=== PATIENT | female | born 1935 | race African-American/Black ===

== ENCOUNTER 2016-10-17 23:13 | Inpatient (IN) | payer MEDICARE ==
[~2016-10-17] VITALS: Ht 163.8 cm; Wt 81.8 kg
[2016-10-18] MEDS ORDERED: SODIUM CHLORIDE 0.9% 1,000ML IVBOLUS ONE
[2016-10-18] MEDS ORDERED: CEFTRIAXONE PMX 1GM/50ML 50 ML IVPB ONE
[2016-10-18] MEDS ORDERED: SODIUM CHLORIDE FLUSH 10ML SYR IVF ONE
[2016-10-18] MEDS ORDERED: AZITHROMYCIN 500 MG in SODIUM CHLORIDE 0.9% 250 ML IVPB ONE
[2016-10-18] MEDS ORDERED: ONDANSETRON 2MG/ML, 2ML IVP ONE
[2016-10-18] MEDS ORDERED: CEFTRIAXONE PMX 1GM/50ML 50 ML ONE (00:01)
[2016-10-18] MEDS ORDERED: ONDANSETRON 2MG/ML, 2ML ONE (00:04)
[2016-10-18] MEDS ORDERED: MORPHINE SULFATE 4 MG/ML, 1ML ONE ×2 (00:04→01:10)
[2016-10-18] MEDS ORDERED: LISI-167 PO (00:09)
[2016-10-18] MEDS ORDERED: SIMV20TA3 PO (00:09)
[2016-10-18] MEDS: MORPHINE SULFATE 4 MG/ML, 1ML IVPush PRN ×2 (00:34→01:14)
[2016-10-18 00:41] LABS: ASPARTATE AMINO TRANSFERASE 16 U/L (15-37); BLOOD UREA NITROGEN 21 mg/dL (7-18)
[2016-10-18 00:49] LABS: IS PT STATUS REG ER OR PRE ER? YES
[2016-10-18] MEDS ORDERED: OMNIPAQUE 350 MG/ML, 100ML BOTTLE ONE (01:11)
[2016-10-18] MEDS ORDERED: HEPARIN 5,000 UNITS/ML, 1ML IV ONE (01:30)
[2016-10-18] MEDS ORDERED: HEPARIN 5,000 UNITS/ML, 1ML IV PRN (01:30)
[2016-10-18] MEDS ORDERED: HEPARIN 5,000 UNITS/ML, 1ML ONE (01:48)
[2016-10-18] MEDS ORDERED: HEPARIN 25,000 UNITS/500ML PMX 500 ML ONE (01:54)
[2016-10-18] MEDS ORDERED: TRAZODONE 50MG TABLET PO PRN (02:00)
[2016-10-18] MEDS ORDERED: POLYETHYLENE GLYCOL 17 GM PACKET PO PRN (02:00)
[2016-10-18] MEDS ORDERED: DOCUSATE 100 MG CAPSULE PO PRN (02:00)
[2016-10-18] MEDS ORDERED: LABETALOL 5MG/ML 40ML VIAL IV PRN (02:00)
[2016-10-18] MEDS ORDERED: BISACODYL 10 MG SUPP PR PRN (02:00)
[2016-10-18] MEDS: HEPARIN 25,000 UNITS/500ML PMX 500 ML IV PRN (02:09)
[2016-10-18] MEDS: SODIUM CHLORIDE 0.9% 1,000 ML IV SCH ×3 (03:51→15:01)
[2016-10-18 04:03] VITALS: BP 110/61
[2016-10-18 06:33] LABS: IS PT STATUS REG ER OR PRE ER? NO
[2016-10-18 07:36] VITALS: BP 114/69
[2016-10-18] MEDS: LISINOPRIL 10 MG TABLET PO SCH (07:38)
[2016-10-18] MEDS: ACETAMINOPHEN 325 MG TABLET PO PRN ×3 (07:38→21:02)
[2016-10-18 08:26] LABS: BLOOD UREA NITROGEN 18 mg/dL (7-18)
[2016-10-18 12:19] LABS: IS PT STATUS REG ER OR PRE ER? NO
[2016-10-18 13:21] VITALS: BP 144/83
[2016-10-18 20:30] VITALS: BP 139/77
[2016-10-18] MEDS: SIMVASTATIN 20 MG TABLET PO SCH (21:00)
[2016-10-19 00:33] VITALS: BP 105/64
[2016-10-19 03:28] LABS: BLOOD UREA NITROGEN 13 mg/dL (7-18)
[2016-10-19 08:19] VITALS: BP 144/81
[2016-10-19] MEDS: LISINOPRIL 10 MG TABLET PO SCH (08:34)
[2016-10-19] MEDS: HEPARIN 25,000 UNITS/500ML PMX 500 ML IV PRN (08:38)
[2016-10-19] MEDS: SIMVASTATIN 20 MG TABLET PO SCH (11:45)
[2016-10-19] MEDS ORDERED: APIX5TAB PO (11:57)
[2016-10-19] MEDS ORDERED: APIXABAN 5 MG TABLET PO SCH (12:00)
[2016-10-19] MEDS: ACETAMINOPHEN 325 MG TABLET PO PRN (12:10)
[2016-10-19] MEDS ORDERED: PNEUMOCOCCAL 23 VACCINE IM-VACC ONE (13:30)
== END 2016-10-19 14:45 | disposition home or self-care (01) | DRG 175 ==
LOC: ED 23:49 → EDIP 10-18 01:47 → 5SO 10-18 03:41 → DCLOUNGE 10-19 14:20
PROVIDERS: ADMIT Internal Medicine; ATTEND Internal Medicine
DX: I26.99 Other pulmonary embolism without acute cor pulmonale (principal); N17.0 Acute kidney failure with tubular necrosis; E87.1 Hypo-osmolality and hyponatremia; R65.10 Systemic inflammatory response syndrome (SIRS) of non-infectious origin without acute organ dysfunction; I10 Essential (primary) hypertension; E78.5 Hyperlipidemia, unspecified; E03.9 Hypothyroidism, unspecified; E78.00 Pure hypercholesterolemia, unspecified; I25.10 Atherosclerotic heart disease of native coronary artery without angina pectoris; J84.112 Idiopathic pulmonary fibrosis; Z83.3 Family history of diabetes mellitus; Z85.3 Personal history of malignant neoplasm of breast; Z88.2 Allergy status to sulfonamides; Z90.49 Acquired absence of other specified parts of digestive tract; Z82.49 Family history of ischemic heart disease and other diseases of the circulatory system; Z80.9 Family history of malignant neoplasm, unspecified; Z23 Encounter for immunization
CPT/HCPCS: 36415; 71275; 80048; 80053; 83605; 83735; 83880; 84439; 84443; 84484; 85025; 85520; 85610; 85730; 87040; 90732; 93005; 96365; 96374; 96375; 96376; J0456; J0696; J1644; J2405; Q9967; J7030; J7050

== ENCOUNTER → 2017-03-30 | Outpatient (CLI) | payer MEDICARE ==
[~2017-03-30] MED LIST: APIX5TAB PO; LISI-167 PO; SIMV20TA3 PO
== END | disposition home or self-care (01) ==
LOC: CFH 12:08
PROVIDERS: ATTEND Licensed Practical Nurse
DX: Z12.31 Encounter for screening mammogram for malignant neoplasm of breast (principal); Z13.820 Encounter for screening for osteoporosis; N95.8 Other specified menopausal and perimenopausal disorders; Z85.3 Personal history of malignant neoplasm of breast; Z92.3 Personal history of irradiation
CPT/HCPCS: 77080; G0202

== ENCOUNTER → 2017-05-26 | Outpatient (CLI) | payer MEDICARE ==
[~2017-05-26] MED LIST changes: +OMNIPAQUE 350 MG/ML, 100ML BOTTLE ONE
== END ==
LOC: RAD 13:43
PROVIDERS: ATTEND Internal Medicine
DX: J84.9 Interstitial pulmonary disease, unspecified (principal)
CPT/HCPCS: 36415; 71275; 82565; Q9967

== ENCOUNTER → 2017-09-18 | Outpatient (CLI) | payer MEDICARE ==
[~2017-09-18] MED LIST changes: -OMNIPAQUE 350 MG/ML, 100ML BOTTLE ONE
== END | disposition home or self-care (01) ==
LOC: CFH 12:29
PROVIDERS: ATTEND Internal Medicine
DX: M51.16 Intervertebral disc disorders with radiculopathy, lumbar region (principal)
CPT/HCPCS: 72110

== ENCOUNTER → 2018-04-02 | Outpatient (CLI) | payer MEDICARE | END | disposition home or self-care (01) | LOC: CFH 11:18 | PROVIDERS: ATTEND Internal Medicine | DX: Z12.31 Encounter for screening mammogram for malignant neoplasm of breast (principal); Z80.3 Family history of malignant neoplasm of breast | CPT/HCPCS: 77067 ==